=== PATIENT | female | born 1935 | race Caucasian/White ===

== ENCOUNTER 2020-05-18 16:17 | Inpatient (IN) | payer MEDICARE, OTHER ==
[~2020-05-18] VITALS: Ht 154.9 cm; Wt 54.0 kg
[~2020-05-18 16:17] MED LIST: ASPIRIN EC81 M1 PO; B COMPLEX-VITA1 EACH PO; CALCIUM 1,0001 EACH PO; COZAAR 50 MG TA50 MG PO; FISH OIL 1,0001 EAC5 PO; HYDROCODONE-AP1 EAC6 PO; LEVAQUIN 750 M750 MG PO; ONE-A-DAY WOMENS PO; PERCOCET 5-3251 EACH PO; SIMVASTATIN10 MG PO; SLOW FE 160MG160 MG PO; VENTOLIN HFA 1818 GM INH; VITAMIN D10000 UNIT PO
[2020-05-18] MEDS ORDERED: IRON18 M1 PO (16:20)
[2020-05-18] MEDS ORDERED: B12 ACTIVE1000 MCG PO (16:20)
[2020-05-18] MEDS ORDERED: CENTRUM ADULT120 MCG PO (16:20)
[2020-05-18] MEDS ORDERED: DIGOX125 MCG PO (16:21)
[2020-05-18] MEDS ORDERED: ACID CONTROLLER20 MG PO (16:21)
[2020-05-18] MEDS ORDERED: CARVEDILOL6.25 M1 PO (16:21)
[2020-05-18] MEDS ORDERED: ELIQUIS2.5 MG PO (16:21)
[2020-05-18] MEDS ORDERED: VITAMIN D350 MCG PO (16:22)
[2020-05-18] MEDS ORDERED: VENTOLIN HFA 1818 GM INH (16:22)
[2020-05-18] MEDS ORDERED: SIMVASTATIN40 MG PO (16:22)
[2020-05-18] MEDS ORDERED: DIPHENHIST50 MG PO (16:22)
[2020-05-18 16:28] VITALS: BP 184/110
[2020-05-18 16:48] LABS: ABSOLUTE BASOPHILS 0.1 thou/uL (0.0-0.2); ABSOLUTE EOSINOPHILS 0.6 thou/uL (0.0-0.7); ABSOLUTE LYMPHOCYTES 1.9 thou/uL (0.8-5.3); ABSOLUTE MONOCYTES 0.6 thou/uL (0.0-1.2); ABSOLUTE NEUTROPHILS 5.2 thou/uL (1.6-8.1); BASOPHILS 0.8 %; EOSINOPHILS 6.9 %; HEMATOCRIT 39.7 % (37.0-47.0); HEMOGLOBIN 13.5 gm/dL (12.0-15.0); LYMPHOCYTES 22.5 %; MCH 30.7 pg (26.0-34.0); MCHC 34.1 g/dL (28.0-37.0); MCV 89.8 fL (80.0-100.0); MONOCYTES 6.8 %; MPV 10.2 fl. (7.2-11.1); NUCLEATED RBCS 0 /100WBC; PLATELET COUNT* 218 thou/uL (150-400); RBC 4.42 mil/uL (4.20-5.00); RDW-CV 14.6 % (10.5-14.5); WBC 8.3 thou/uL (4.0-11.0)
[2020-05-18 16:55] LABS: CALCIUM 9.2 mg/dL (8.5-10.1); CREATININE 1.1 mg/dL (0.6-1.3); POTASSIUM 3.9 mmol/L (3.5-5.1)
[2020-05-18 16:59] LABS: APTT 24.8 Seconds (25.0-31.3); INR 1.1; PROTIME 11.8 Seconds (9.20-11.50)
[2020-05-18 17:00] LABS: ALBUMIN 3.7 g/dL (3.4-5.0); TOTAL BILIRUBIN 0.5 mg/dL (<0.1-1.0); TOTAL PROTEIN 7.7 g/dL (6.4-8.2)
[2020-05-18 21:57] LABS: URINE BILIRUBIN NEGATIVE (Negative); URINE BLOOD 1+ (Negative); URINE CLARITY CLEAR; URINE COLOR YELLOW; URINE GLUCOSE-RANDOM NEGATIVE (Negative); URINE KETONES TRACE (Negative); URINE LEUKOCYTES-REFLEX 1+ (Negative); URINE NITRITE-REFLEX NEGATIVE (Negative); URINE PROTEIN 1+ (Negative); URINE SPECIFIC GRAVITY 1.015 (1.005-1.030); URINE UROBILINOGEN 0.2 E.U./dl (0.2-1.0)
[2020-05-18 22:00] VITALS: BP 160/68
[2020-05-18 22:42] LABS: SQUAMOUS 0-3 Few /LPF (0-3)
[2020-05-18 22:43] LABS: CASTS None Seen /LPF (None Seen); URINE WBC-REFLEX >25 Many /HPF (0-5)
[2020-05-18 22:44] LABS: CRYSTALS None Seen /LPF (None Seen); URINE RBC 3-10 Few /HPF (0-2)
[2020-05-19 02:30] VITALS: BP 156/68
[2020-05-19] MEDS ORDERED: SYMBICORT160 MCG/4. INH (04:06)
--- NOTE | 2020-05-19 05:54 | NUR ---
ASSUMED CARE OF PT AT 0225. PT A&O, VSS ON ROOM AIR, PT NPO SINCE [place], PAIN MED REQUESTED AND GIVEN ORDERED, PT REPOSITIONED Q2H. HOURLY ROUNDINGS COMPLETE, WILL CONTINUE TO MONITOR.
[2020-05-19 08:09] VITALS: BP 175/62
--- NOTE | 2020-05-19 09:40 | EKG ---
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: : [id number] Requested By: Mark Schulte Order Number: [id number] MD: Hiro Quintanilla Measurements Intervals [place] Rate: 82 P: [place]: QRS: -53 QRSD: 105 T: 72 QT: 413 QTc: 483 Interpretive Statements Atrial fibrillation Left anterior fascicular block Probable anteroseptal infarct, old Compared to ECG 09/13/2015 14:46:42 Myocardial infarct finding now present Sinus rhythm no longer present Electronically Signed On 05-19-2020 9:40:01 CUT OUT OPERATOR by Hiro Quintanilla [email or web address] <ELECTRONICALLY SIGNED> By: Hiro Quintanilla MD, [facility] 05/19/20 0940 1643 1643 Hiro Quintanilla MD, [facility] /EPI
--- NOTE | 2020-05-19 14:17 | NUR ---
CM SPOKE TO THE PT TO DISCUSS CM ASSESSMENT. PT A&O. PT NORMALLY INDEPENDENT WITH ADL'S, ACTIVE AND ABLE TO DRIVE LOCALLY. PT INFORMS THAT SHE IS HERE VISITING HER DTR AND FAMILY, BUT RESIDES AT HOME ALONE IN [place]. PT OWNS A CANE AND A WALKER, BUT RARELY USED THEM. PT HAS HX OF HH AND OUTPATIENT PHYSICAL THERAPY. PT HAS 0 HX OF SNF. CM WILL REMAIN AVAILABLE TO ASSIST AND FOLLOW NEEDED.
[2020-05-19 16:45] VITALS: BP 179/75
[2020-05-19 20:00] VITALS: BP 165/75
--- NOTE | 2020-05-20 05:03 | NUR ---
ASSUMED PT'S CARE BEGINNING OF THIS PM SHIFT. ALERT AND ORIENTED. PT TOOK MEDS PER EMAR. RW IV SL. PRN FENTANYL GIVEN THIS SHIFT. PT SLEEPING WELL SO FAR. REFUSED ALL TURNS THIS SHIFT. VOIDED VIA BEDPAN. FALL PRCAUTION IN PLACE. CALL LIGHT WITHIN REACH. HOURLY ROUNDINGS MADE. WILL CONTINUE TO MONITOR.
[2020-05-20 08:00] VITALS: BP 161/68
--- NOTE | 2020-05-20 16:09 | NUR ---
ASSUMED CARE OF PATIENT THIS AM AT 0730. PATIENT IS ALERT AND ORIENTED X 4 THIS AM. SHE C/O SEVERE LEFT HIP PAIN. PATIENT WAS MEDICATED FOR PAIN AND SLEPT POST MEDICATION. PATIENT PLACED ON THE BEDPAN TO VOID. SHE HAS HAD DIFFICULTY TOLERATING ANY MOVEMENT. HER APPETITE AND FLUID INTAKE HAS BEEN LOW. DR LICEA NOTIFIED. IV FLUIDS STARTED PER ORDER. PATIENT HAS BECOME MORE CONFUSED THIS AFTERNOON. HER DAUGHTER IS IN AT THE BEDSIDE. PAIN MEDICATION ORDERS ARE TO BE CHANGED BY DR LICEA. PATIENT HAS BEEN REFUSING TO TURN. WILL CONTINUE TO MONITOR FLUID STATUS AND COMFORT.
[2020-05-20 16:30] VITALS: BP 151/71
[2020-05-20 18:45] LABS: ABSOLUTE BASOPHILS 0.1 thou/uL (0.0-0.2); ABSOLUTE EOSINOPHILS 0.2 thou/uL (0.0-0.7); ABSOLUTE LYMPHOCYTES 1.8 thou/uL (0.8-5.3); ABSOLUTE MONOCYTES 1.3 thou/uL (0.0-1.2); ABSOLUTE NEUTROPHILS 8.8 thou/uL (1.6-8.1); BASOPHILS 0.6 %; EOSINOPHILS 1.6 %; HEMATOCRIT 36.8 % (37.0-47.0); HEMOGLOBIN 12.3 gm/dL (12.0-15.0); LYMPHOCYTES 14.8 %; MCH 30.1 pg (26.0-34.0); MCHC 33.5 g/dL (28.0-37.0); MCV 89.7 fL (80.0-100.0); MONOCYTES 10.7 %; NUCLEATED RBCS 0 /100WBC; PLATELET COUNT* 177 thou/uL (150-400); POLYS 72.3 %; RDW-CV 14.8 % (10.5-14.5); WBC 12.1 thou/uL (4.0-11.0)
[2020-05-20 19:02] LABS: CALCIUM 8.6 mg/dL (8.5-10.1); POTASSIUM 3.7 mmol/L (3.5-5.1); TOTAL BILIRUBIN 1.3 mg/dL (<0.1-1.0); TOTAL PROTEIN 7.1 g/dL (6.4-8.2)
[2020-05-20 20:50] VITALS: BP 156/63
[2020-05-21 00:47] LABS: URINE BILIRUBIN NEGATIVE (Negative); URINE BLOOD 1+ (Negative); URINE CLARITY CLEAR; URINE COLOR YELLOW; URINE GLUCOSE-RANDOM NEGATIVE (Negative); URINE KETONES NEGATIVE (Negative); URINE LEUKOCYTES 2+ (Negative); URINE NITRITE NEGATIVE (Negative); URINE PROTEIN 1+ (Negative); URINE SPECIFIC GRAVITY 1.025 (1.005-1.030); URINE UROBILINOGEN 0.2 E.U./dl (0.2-1.0)
[2020-05-21 01:30] LABS: CASTS None Seen /LPF (None Seen); SQUAMOUS 0-3 Few /LPF (0-3)
[2020-05-21 01:31] LABS: CRYSTALS None Seen /LPF (None Seen); URINE RBC 3-10 Few /HPF (0-2); URINE WBC >25 Many /HPF (0-5)
--- NOTE | 2020-05-21 06:04 | NUR ---
PATIENT VERY DROWSY AND UNABLE TO ANSWER ORIENTATION QUESTIONS AT FIRST ROUNDS. CONTINUED IMPROVEMENT THE FURTHER REMOVED FROM LAST DOSE OF FENTANYL. DID MEDICATE PATIENT FOR PAIN X 2 WITH ONE TABLET OF HYDROCODONE WHICH WAS HELPFUL ENOUGH FOR STAFF TO TURN HER AND CHANGE BEDPAD/SKIN CHECK AND USE THE BEDPAN DURING THE SHIFT. ONLY 2 VOIDS TONIGHT. FIRST AT 0010 OF 100 ML WHICH WAS SENT TO LAB. SECOND VOID 0445 OF 400 ML. VITAL SIGNS STABLE. MEDS/IVF'S PER ORDER. FALL PRECAUTIONS IN PLACE. CONTINUE TO MONITOR.
[2020-05-21] MEDS ORDERED: HYDROCODON-ACE1 EAC7 PO (09:28)
--- NOTE | 2020-05-21 13:14 | NUR ---
Therapies recommending that Pt go to ARU at dc, ARU consult placed. Awaiting decision to accept. DC orders written.
[2020-05-21 16:37] VITALS: BP 131/58
--- NOTE | 2020-05-21 17:44 | NUR ---
PT ALERT AND ORIENTED IN BED. DAUGHTER AT BEDSIDE ALL DAY. PAIN MEDS GIVEN REQUESTED. PT COMPLAINS OF LEFT HIP PAIN. PT CALLS OUT APPROPRIATELY. PT USES BED PAIN. PT HAS NOT GOTTEN OUT OF BED TODAY. PT/OT WORKED WITH PT AND FAMILY TODAY. PT EATING AT THIS TIME. PT ALSO GIVEN CHOCOLATE ENSURE TO SUPPLEMENT NEEDED PER REQUEST. IV FLUIDS REMAIN INFUSING. FALL RISK PRECAUTIONS IN PLACE. WILL CONTINUE TO MONITOR.
--- NOTE | 2020-05-21 18:18 | NUR ---
THIS NURSE AGREES WITH MORNING ASSESSMENT BY JOSE SANTAMARIA
[2020-05-21 20:00] VITALS: BP 145/51
[2020-05-22 04:26] LABS: ABSOLUTE BASOPHILS 0.1 thou/uL (0.0-0.2); ABSOLUTE EOSINOPHILS 0.5 thou/uL (0.0-0.7); ABSOLUTE LYMPHOCYTES 1.6 thou/uL (0.8-5.3); ABSOLUTE MONOCYTES 0.8 thou/uL (0.0-1.2); ABSOLUTE NEUTROPHILS 5.8 thou/uL (1.6-8.1); BASOPHILS 0.7 %; EOSINOPHILS 5.8 %; HEMATOCRIT 33.2 % (37.0-47.0); HEMOGLOBIN 11.2 gm/dL (12.0-15.0); LYMPHOCYTES 17.9 %; MCH 30.4 pg (26.0-34.0); MCHC 33.8 g/dL (28.0-37.0); NUCLEATED RBCS 0 /100WBC; PLATELET COUNT* 150 thou/uL (150-400); POLYS 66.6 %; RBC 3.69 mil/uL (4.20-5.00); WBC 8.7 thou/uL (4.0-11.0)
[2020-05-22 04:38] LABS: CALCIUM 8.8 mg/dL (8.5-10.1); POTASSIUM 3.8 mmol/L (3.5-5.1)
--- NOTE | 2020-05-22 05:17 | NUR ---
ASSUMED CARE AT 1930. PATIENT RESTING IN BED. REFUSES TURNS. VERY VERY RELUCTANT TO TURN TO USE BEDPAN. HAS BEEN ABLE TO BRIDGE UP ENOUGH TO SCOOT BEDPAN IN FROM BETWEEN LEGS RATHER THAN HER TURN. PERICARE GIVEN. IVF INFUSING TO RT FA. MEDICATED FOR PAIN, WITH RELIEF. SEE MAR. HOURLY ROUNDS CONTINUE. BED ALARM ON. CALL LITE IN REACH.
[2020-05-22 08:25] VITALS: BP 132/64
[2020-05-22 15:52] VITALS: BP 159/63
[2020-05-22 21:00] VITALS: BP 159/68
--- NOTE | 2020-05-22 21:05 | NUR ---
RESTING QUIETLY IN BED. IV FLUIDS INFUSING. CALL LIGHT WITHIN REACH.
--- NOTE | 2020-05-23 04:51 | NUR ---
RESTED QUIETLY. REFUSES TO REPOSITION TO THE SIDE. USES FRACTURE BEDPAN TO VOID. HOURLY ROUNDING IN PROGRESS.
[2020-05-23 11:17] VITALS: BP 174/70
--- NOTE | 2020-05-23 15:03 | NUR ---
SPOKE WITH PT.AND DAUGHTER IN ROOM ABOUT HELP AT HOME AFTER REHAB STAY IF NEEDED. DAUGHTER SAID SHE AND ARE WORKING FROM HOME FOR AT LEAST 2 MONTHS. THEY WILL BE ABLE TO HELP HER WHEN SHE IS DISCHARGED FROM REHAB. PT.LIVES IN [place]. DAUGHTER STATED PT.MAY NEED TO MOVE HERE. NOTIFIED SCIENTOLOGIST/REHAB OF [facility]OVE. SHE SAID PT.CAN COME TO REHAB UNIT PENDING NEG.COVID TEST. NOTIFIED FLORENCIO FOX ABOUT NEEDED COVID TEST.
[2020-05-23 16:00] VITALS: BP 152/67
--- NOTE | 2020-05-23 18:18 | NUR ---
ASSESSMENT COMPLETED DOCUMENTED THIS MORNING. DAUGHTER AT THE BEDSIDE ALL DAY AND HAS BEEN VERY SUPPORTIVE. THERAPY IN FOR EVALS AND TREATMENT PATIENT TO BE TRANSFERRED TO REHAB THIS AFTERNOON. VSS, PAIN IS WELL MANAGED WITH CURRENT REGIMEN. C/O CONSTIPATION, PRUNE JUICE X2 AND 1 DOSE OF MIRALAX GIVEN TODAY. 174 PATIENT TRANSFERRED TO ROOM 318 ON REHAB
== END 2020-05-23 19:32 | DRG 560 ==
LOC: M.ERS 16:17 → M.TBA-ER 18:20 → M.3W 18:20
PROVIDERS: Emergency Medicine Emergency Medical Services; Internal Medicine; ADMIT Internal Medicine; ATTEND Internal Medicine
DX: M97.02XA Periprosthetic fracture around internal prosthetic left hip joint, initial encounter (principal); D68.59 Other primary thrombophilia; Z20.822 Contact with and (suspected) exposure to COVID-19; S41.112A Laceration without foreign body of left upper arm, initial encounter; S41.111A Laceration without foreign body of right upper arm, initial encounter; W01.0XXA Fall on same level from slipping, tripping and stumbling without subsequent striking against object, initial encounter; E78.00 Pure hypercholesterolemia, unspecified; E78.5 Hyperlipidemia, unspecified; I10 Essential (primary) hypertension; I48.91 Unspecified atrial fibrillation; Z96.642 Presence of left artificial hip joint; Y93.89 Activity, other specified; Y92.89 Other specified places as the place of occurrence of the external cause; Y99.8 Other external cause status; Z79.01 Long term (current) use of anticoagulants; Z79.899 Other long term (current) drug therapy; Z88.2 Allergy status to sulfonamides; Z98.41 Cataract extraction status, right eye; Z98.42 Cataract extraction status, left eye

== ENCOUNTER 2020-05-23 16:19 | Inpatient (IN) | payer MEDICARE, OTHER ==
[~2020-05-23] VITALS: Ht 154.9 cm; Wt 75.7 kg
[~2020-05-23 16:19] MED LIST changes: +ACID CONTROLLER20 MG PO; +B12 ACTIVE1000 MCG PO; +CARVEDILOL6.25 M1 PO; +CENTRUM ADULT120 MCG PO; +DIGOX125 MCG PO; +DIPHENHIST50 MG PO; +ELIQUIS2.5 MG PO; +HYDROCODON-ACE1 EAC7 PO; +IRON18 M1 PO; +SIMVASTATIN40 MG PO; +SYMBICORT160 MCG/4. INH; +VITAMIN D350 MCG PO
[2020-05-23 19:30] VITALS: BP 146/67
--- NOTE | 2020-05-24 00:46 | NUR ---
ASSUMED CARE AT 1930. PATIENT ADMITTED TO ROOM 318 FOR FX LT HIP. IN RECLINER AT BEGINNING OF SHIFT. USED BSC WITH MAX ASSIST OF TWO, TTWB TO LLE. NEEDED HELP WITH HYGIENE. MAX ASSIST FROM BSC > BED. ABLE TO BRIDGE UP VERY WELL IN BED. HAS BEEN USING BEDPAN FOR VOIDING. HAS VOIDED FOUR TIMES THUS FAR, VERY LARGE AMOUNTS EACH TIME. SKIN CARE DONE. MOISTURE BARRIER APPLIED. TAKES PILLS WHOLE WITH WATER. ASSESSMENT DONE. NO C/O PAIN WHEN LYING STILL. SKIN TEAR TO LT ELBOW, DRESSING CHANGED, PICTURE TAKEN. HOURLY ROUNDS CONTINUE. BED ALARM ON. CALL LITE IN REACH. FALL PRECAUTION
[2020-05-24 04:44] LABS: HEMATOCRIT 32.9 % (37.0-47.0); MCH 30.1 pg (26.0-34.0); MCHC 33.5 g/dL (28.0-37.0); MCV 89.9 fL (80.0-100.0); MPV 9.5 fl. (7.2-11.1); RBC 3.66 mil/uL (4.20-5.00); WBC 8.8 thou/uL (4.0-11.0)
[2020-05-24 05:13] LABS: CALCIUM 9.1 mg/dL (8.5-10.1); CREATININE 0.8 mg/dL (0.6-1.3); POTASSIUM 3.9 mmol/L (3.5-5.1)
--- NOTE | 2020-05-24 05:49 | NUR ---
SLEPT BETWEEN VOIDS. HAS VOIDED 7 TIMES THIS SHIFT LARGE AMOUNTS EACH TIME. VOIDS PER BEDPAN. CONTINUES TO BRIDGE UP WELL, SKIN CARE DONE, MOISTURE BARRIER APPLIED. DSSG TO LT ELBOW C/D/I. MEDICATED FOR PAIN WITH RELIEF. SEE JUL. HOURLY ROUNDS CONTINUE. BED ALARM ON. CALL LITE IN REACH. FALL PRECAUTIONS.
[2020-05-24 08:14] VITALS: BP 169/74
--- NOTE | 2020-05-24 10:06 | NUR ---
Nutrition: Pt admitted to rehab s/p fall/hip FX. Wt: 122#. Regular diet order. No intake records. Pt busy with OT at time of visit. H/o OA, HLD, afib. Will follow for po intake, wts. Follow weekly. Mild risk at this time.
--- NOTE | 2020-05-24 14:36 | NUR ---
INITIAL ASSESSMENT: PATIENT ADMITTED TO THE [facility] ON 05/23/20 WITH A DIAGNOSIS OF LEFT HIP FX. PATIENT A&0. NORMALLY INDEPENDENT WITH ADL' AND ACTIVE. PT RESIDES AT HOME IN [place] ALONE. PT HERE VISITING FAMILY. PT PLANS TO RETURN TO DTR'S HOUSE AT D/C AND THEY WILL BE THERE TO ASSIST HER WITH CARES THEY ARE CURRENTLY WORKING FROM HOME. PT OWNS A WALKER, CANE, AND COMMODE BUT DID NOT USE ANY DME PRIOR TO ADMIT. PT HAS NO HX OF SNF. PT HAS PAST HH AND OUTPATIENT THERAPY HX. CM ORIENTED PT AND HER DTR ABOUT REHAB UNIT AND PROCESSES, RESIDENTS RIGHTS INFO, TEAM CONFRENCE, AND TO THE ROLE OF CM. CM WILL REMAIN AVAILABLE TO ASSIST AND FOLLOW NEEDED.
--- NOTE | 2020-05-24 18:10 | NUR ---
ASSESSMENT COMPLETED DOCUMENTED THIS MORNING. PATIENT HAS BEEN UP AND PARTICIPATING WITH THERAPIES, AND TOLERATING WELL. HYDROCODONE X1 DURING SHIFT WITH RELIEF NOTED. DAUGHTER AT THE BEDSIDE ALL DAY AND PROVIDES SUPPORT.
[2020-05-24 20:00] VITALS: BP 148/64
--- NOTE | 2020-05-25 06:40 | NUR ---
ASSUMED PT CARE AT 1930. ASSESSMENT COMPLETED CHARTED. ABLE TO MAKE NEED KNOWN. C/O LEFT LEG PAIN AND GAVE PRN PAIN MEDICATION PER EMAR. RESTING IN BED ALL NIGHT, USED BEDPAN TO URINATE. WILL CONTINUE TO MONITOR.
[2020-05-25 08:00] VITALS: BP 158/72
--- NOTE | 2020-05-25 17:57 | NUR ---
AM ASSESSMENT AND VITAL SIGNS COMPLETED DOCUMENTED. PT WORKED WITH OT, PT AND ST TODAY. NEW ORDERS REC'D FOR PRN LIDOCAINE PATCH TO THE LEFT HIP AND VOLTAREN GEL PRN TO THE NECK. PT'S DAUGHTER WAS HERE MOST OF THE DAY AND SHE IS VERY HELPFUL, PT WILL BE GOING HOME WITH HER AT DISCHARGE. FALL PRECAUTIONS AND HOURLY ROUNDING IN PLACE.
[2020-05-25 20:00] VITALS: BP 100/76
[2020-05-26 08:28] VITALS: BP 156/78
[2020-05-26 19:35] VITALS: BP 142/64
--- NOTE | 2020-05-26 19:35 | NUR ---
RESTING QUIETLY IN BED AND WATCHING TV. DENIES DISCOMFORT. CALL LIGHT WITHIN REACH.
--- NOTE | 2020-05-27 04:50 | NUR ---
RESTED QUIETLY AFTER TAKING AMBIEN. USED BEDPAN TO VOID. HOURLY ROUNDING IN PROGRESS.
[2020-05-27 07:30] VITALS: BP 143/57
--- NOTE | 2020-05-27 18:39 | NUR ---
ASSESSMENT COMPLETED DOCUMENTED THIS MORNING. PATIENT UP AND PROPELLED SELF AROUND ENTIRE 3RD FLOOR X2 TODAY. HYDROCODONE X2, AND DICLOFENAC GEL PRN WITH GOOD PAIN CONTROL STATED. UP TO BSC AND HAS REMAINED CONT OF URINE. NO BOWEL MOVEMENT NOTED.
[2020-05-27 19:10] VITALS: BP 126/64
--- NOTE | 2020-05-27 19:10 | NUR ---
RESTING QUIETLY IN BED WATCHING TV. CALL LIGHT WITHIN REACH. STATES WOULD LIKE PAIN MEDICINE FOR LEFT HIP PAIN RATED "5".
[2020-05-28 04:09] LABS: HEMATOCRIT 32.4 % (37.0-47.0); HEMOGLOBIN 11.1 gm/dL (12.0-15.0); MCH 30.5 pg (26.0-34.0); MCHC 34.1 g/dL (28.0-37.0); MCV 89.3 fL (80.0-100.0); MPV 8.8 fl. (7.2-11.1); RBC 3.63 mil/uL (4.20-5.00); WBC 9.8 thou/uL (4.0-11.0)
[2020-05-28 04:46] LABS: ALBUMIN 2.7 g/dL (3.4-5.0); CALCIUM 8.9 mg/dL (8.5-10.1); MAGNESIUM 2.3 mg/dL (1.8-2.4); POTASSIUM 4.5 mmol/L (3.5-5.1); TOTAL BILIRUBIN 0.6 mg/dL (<0.1-1.0); TOTAL PROTEIN 6.7 g/dL (6.4-8.2)
--- NOTE | 2020-05-28 06:38 | NUR ---
RELIEF WITH PAIN MEDICINE. USED BEDPAN DURING THE NIGHT TO VOID. HOURLY ROUNDING IN PROGRESS.
[2020-05-28 08:00] VITALS: BP 136/58
--- NOTE | 2020-05-28 14:31 | NUR ---
CM SPOKE TO THE PT AND HER DTR TO DISCUSS AND QUESTIONS OR CONCERNS THAT THEY MAY HAVE FOR THIS WEEKS TEAM [facility]FRENCE MEETING. PT HAS NO QUESTIONS OR CONCERNS AT THIS TIME. PT'S DTR INFORMS THAT HER ONLY QUESTION IS IF THE PT WILL QUALIFY FOR A WHEELCHAIR. CM TO DISCUSS DME WITH PT/OT. CM AND PHYSICIAN TO F/U WITH PT AND HER DTR AFTER THURSDAY'S TEAM [facility] MEETING. CM WILL REMAIN AVAILABLE TO ASSIST AND FOLLOW NEEDED.
--- NOTE | 2020-05-28 16:15 | NUR ---
ALERT AND ORIENTED X4. UP WITH 1 ASSIST, GAIT BELT AND WALKER. REMAINS TOE TOUCH WEIGHTBEARING TO LEFT LOWER EXTREMITY. SKIN TEAR ON LEFT ELBOW HEALING AND NEW DRESSING APPLIED. MOM GIVEN FOR CONSIIPATION WITH GOOD RESULTS. TAKES PILLS WHOLE WITHOUT DIFFICULTY. GIVEN PO PAIN MEDICATION TO HELP WITH LEFT HIP PAIN. PAIN PATCH ALSO APPLIED TO LEFT HIP TO HELP WITH PAIN. GEL APPLIED TO RIGHT SHOULDER FOR PAIN. CONTINENT OF BOWEL AND BLADDER. USES CALL LIGHT FOR ASSIST. FALL PRECAUTIONS IN PLACE. BED ALARM AND CHAIR ALARM USED.
[2020-05-28 19:00] VITALS: BP 139/66
--- NOTE | 2020-05-29 04:57 | NUR ---
ASSUMED PT CARE AT 1930. PT ALERT AND ORIENTED X4, POLITE AND COOPERATIVE WITH CARES. PRN PAIN MEDICATION GIVEN WITH HS MEDS FOR LEFT HIP PAIN. REMAINS TTWB TO LLE. DRESSING TO LEFT ELBOW SKIN TEAR C/D/I. TAKES PILLS WHOLE WITH WATER WITHOUT DIFFICUTLY. CONTINENT OF BOWEL AND BLADDER. PT SLEPT WELL OVERNIGHT. USES CALL LIGHT APPROPRIATELY. CALL LIGHT IN REACH, BED ALARM ON FOR SAFETY. HOURLY ROUNDING IN PROGRESS, WILL CONTINUE TO MONITOR.
[2020-05-29 08:00] VITALS: BP 146/59
--- NOTE | 2020-05-29 11:50 | NUR ---
AT APROXIMATELY 0917 WAS CALLED TO ROOM BY . PATIENT FOUND LEANING OVER IN BED. RAT TEAM CALLED. V/S DONE AND O2 APPLIED AT 5L/NC DUE TO SATS IN 8O'S. NURSING RUG TOUCH UP PAINTER HERE AND LABS ORDERED, IVF STARTED AND PATIENT PLACED IN [place]. NURSING RUG TOUCH UP PAINTER NOTIFIED BY 0938 PATIENT DOING BETTER AND BLOOD PRESSURE AND PULSE DOING BETTER. WILL CONTINUE TO MONITOR.
--- NOTE | 2020-05-29 16:52 | NUR ---
PATIENT COMPLETED THERAPIES ORDERED. UP IN WHEELCHAIR THROUGHOUT THE SHIFT. PATIENT C/O HEADACHE THIS EVENING, PRN TYLENOL GIVEN ORDERED. PRN HYDROCODONE GIVEN X 2 THIS SHIFT FOR LEG PAIN. PATIENT DAUGHTER HERE THIS EVENING AND C/O DISCOLORATION TO PATIENTS LEGS. PATIENT WAS PREVIOUSLY REFUSING TO ELEVATE LEGS. PEDAL PULSES 2+, SLIGHT EDEMA NOTED TO LEFT FOOT. PATIENT INSTRUCTED TO KEEP LEGS ELEVATED WHEN IN BED AND WHEN UP TO CHAIR, LEGS ELEVATED AT THIS TIME. UP TO BS WITH ASSISTANCE OF ONE AND USE OF GAIT BELT AND WALKER.
[2020-05-29 20:00] VITALS: BP 155/55
[2020-05-30 04:59] LABS: HEMATOCRIT 32.2 % (37.0-47.0); HEMOGLOBIN 10.7 gm/dL (12.0-15.0); MCH 29.6 pg (26.0-34.0); MCHC 33.2 g/dL (28.0-37.0); RBC 3.62 mil/uL (4.20-5.00); RDW-CV 15.1 % (10.5-14.5); WBC 8.4 thou/uL (4.0-11.0)
[2020-05-30 05:19] LABS: CALCIUM 9.2 mg/dL (8.5-10.1); POTASSIUM 4.4 mmol/L (3.5-5.1)
[2020-05-30 08:00] VITALS: BP 131/97
--- NOTE | 2020-05-30 14:26 | NUR ---
AM ASSESSMENT AND VITAL SIGNS COMPLETED DOCUMENTED. PT HAS WORKED WITH PT, OT AND ST AND IS PROGRESSING WELL. I CALLED DR NGUYEN'S OFFICE TO CHECK ON ADVANCING WEIGHT BEARING STATUS, AWAITING RETURN CALL. PT'S DAUGHTER IS HERE TO VISIT. FALL PRECAUTIONS AND HOURLY ROUNDING CONTINUE.
[2020-05-30 19:25] VITALS: BP 127/64
--- NOTE | 2020-05-30 19:25 | NUR ---
IN WHEELCHAIR PROPELLING SELF AROUND IN HER ROOM. DENIES DISCOMFORT. TRANSFERRED TO THE BEDSIDE COMMODE WITH MODERATE ASSIST OF ONE, HERBER CASSIDY. TOUCH TOUCH WEIGHT BEARING TO LEFT LOWER EXTREMITY DUE TO LEFT HIP FRACTURE. TRANSFERRED FROM BEDSIDE COMMODE TO BED WITH KHANH WALKER. ASSISTED WITH LIFTING LEFT LEG INTO BED. CALL LIGHT WITHIN REACH.
--- NOTE | 2020-05-31 05:16 | NUR ---
VOIDED PER BEDPAN X 4 DURING THE NIGHT. PAIN MEDICATION GIVEN THIS MORNING FOR COMPLAINT OF LEFT HIP PAIN RATED "5". WILL CONTINUE TO MONITOR. HOURLY ROUNDING IN PROGRESS.
[2020-05-31 08:00] VITALS: BP 126/74
--- NOTE | 2020-05-31 15:23 | NUR ---
TEAM CONFRENCE MEETING HELD TODAY. CM AND PHYSICIAN SPOKE TO THE PT AND HER DTR TO DISCUSS MEETING AND PLAN TO RE-TEAM AND HAVE THE PT REMAIN ON THE UNIT FOR ANOTHER WEEK. PT AND DTR IN AGREEMENT WITH THE PLAN. PT PROGRESSING TOWARDS GOALS, BUT BARRIERS ARE WB STATUS, DECREASED BALANCE, AND LEFT GROIN PAIN. PT APPROVED FOR LIGHT WEIGHT WHEELCHAIR AND CM DELIVED WC TO PT'S ROOM. CM WILL REMAIN AVAILABLE TO ASSIST AND FOLLOW NEEDED.
[2020-05-31 19:20] VITALS: BP 139/55
--- NOTE | 2020-05-31 19:20 | NUR ---
RESTING QUIETLY IN BED AND WATCHING TV. STATES LEFT HIP PAIN AT A "1". CALL LIGHT WITHIN REACH.
--- NOTE | 2020-06-01 05:20 | NUR ---
USED BEDPAN TO VOID DURING THE NIGHT. RESTED QUIETLY IN BETWEEN VOIDS. HOURLY ROUNDING IN PROGRESS.
[2020-06-01 08:48] VITALS: BP 140/69
--- NOTE | 2020-06-01 16:22 | NUR ---
PT WORKED WITH THERAPIES. UP WITH WALKER AND MIN ASSIST TO BSC. LARGE BM TODAY. PRN PAIN MEDICATION GIVEN PER PT REQUESTS.
[2020-06-01 20:00] VITALS: BP 146/63
--- NOTE | 2020-06-02 06:43 | NUR ---
ASSUMED PT CARE AT 1930. ASSESSMENT COMPLETED CHARTED. ABLE TO MAKE NEEDS KNOWN. C/O PAIN AND GAVE PRN PAIN MEDICATIONS PER EMAR. RESTING IN BED MOST OF THE NIGHT. WILL CONTINUE TO MONITOR.
[2020-06-02 07:22] VITALS: BP 157/59
--- NOTE | 2020-06-02 16:20 | NUR ---
PT UP WITH STB ASSIST WITH WALKER AND GAIT BELT. DAUGHTER HERE TO VISIT. PRN PAIN MEDICATION GIVEN PER PT REQUESTS.
[2020-06-02 19:00] VITALS: BP 134/44
--- NOTE | 2020-06-03 05:37 | NUR ---
ASSUMED CARES AT 1920. ALERT AND ORIENTED. PLEASANT. NORCO GIVEN FOR LEFT HIP PAIN. PT REQUESTED USE OF BEDPAN OVERNIGHT. EDUCATED PT ON IMPORTANCE OF GETTING UP TO BSC. PT STATED THAT GETTING UP AND DOWN FROM BSC WOULD KEEP PT AWAKE AND UNABLE TO FALL BACK ASLEEP. PT SLEPT MOST OF THE NIGHT OTHERWISE. CALL LIGHT IN REACH AND BED ALARM ON.
[2020-06-03 07:41] VITALS: BP 147/65
--- NOTE | 2020-06-03 16:17 | NUR ---
PT UP WITH STB ASSIST WITH GAIT BELT AND WALKER. PRN PAIN MEIDCATION GIVEN PER PT REQUEST. DAUGHTER HERE TO VISIT. FALL PRECAUTIONS IN PLACE INCLUDING BED/CHAIR ALARM. CALL LIGHT IN REACH.
[2020-06-03 20:00] VITALS: BP 142/57
--- NOTE | 2020-06-04 04:48 | NUR ---
ASSUMED CARE AT 1920. ALERT AND ORIENTED. PLEASANT. C/O LEFT HIP PAIN. PAIN MEDS GIVEN NEEDED. MIN ASSIST WITH GAIT BELT AND WALKER. UP TO BSC TO VOID OVERNIGHT. TTWB LLE. SLEPT MOST OF THE NIGHT. CALL LIGHT IN REACH AND BED ALARM ON.
[2020-06-04 07:31] VITALS: BP 150/58
--- NOTE | 2020-06-04 14:13 | NUR ---
CM SPOKE TO THE PT AND HER SON TO DISCUSS ANY QUESTIONS OR CONCERN THAT THEY MAY HAVE FOR THIS WEEKS TEAM CONFRENCE MEETING. PT AND SON HAVE NO QUESTIONS OR CONCERNS AT THIS TIME. CM TO F/U WITH PT AND HER FAMILY TO PROVIDE UPDATE AFTER THIS WEEKS MEETING.
--- NOTE | 2020-06-04 14:14 | NUR ---
CM SPOKE TO THE PT AND HER DTR TO DISCUSS ANY QUESTIONS OR CONCERNS THAT THEY MAY HAVE FOR THIS WEEKS TEAM CONFRENCE MEETING. PT AND DTR INFORM THAT THEY ARE HOPEFUL THAT THE PT IS ABLE TO GO HOME THIS WEEK. CM TO F/U WITH PT AND HER DTR AFTER THIS WEEKS MEETING.
--- NOTE | 2020-06-04 16:00 | NUR ---
PT WORKED WITH THERAPIES. UP WITH STB, GAIT BELT, AND WALKER. SMALL ABRASION TO L BUTTOCK NOTED. PICTURE TAKEN. BARRIER CREAM APPLIED. PT WITH EPISODE OF N/V THIS AM. MAALOX GIVEN WITH RELIEF. DR CABALLERO NOTIFIED. PRN TYLENOL GIVEN PER PT REQUEST. FALL PRECAUTIONS IN PLACE INCLUDING BED/CHAIR ALARMS. CALL LIGHT IN REACH.
[2020-06-04 19:00] VITALS: BP 130/53
--- NOTE | 2020-06-04 19:40 | NUR ---
RESTING QUIETLY IN BED, WATCHING TV BUT STARTING TO DOZE OFF TO SLEEP. DENIES DISCOMFORT. CALL LIGHT WITHINR REACH.
--- NOTE | 2020-06-05 04:51 | NUR ---
UP TO BEDSIDE COMMODE X 2. FIRST TIME HAD MODERATE AMOUNT OF LOOSE STOOL. TRANSFERS SELF WITH GAITBELT, WALKER. DOES OWN ROSAMARIA CARE WITH SET UP. TOE TOUCH WEIGHT BEARING TO LEFT LOWER EXTREMITY DUE TO LEFT HIP FRACTURE. HOURLY ROUNDING IN PROGRESS.
[2020-06-05 07:30] VITALS: BP 147/60
--- NOTE | 2020-06-05 17:42 | NUR ---
PATIENT COMPLETED THERAPIES ORDERED. PRN HYDROCODONE GIVEN X 2 THIS SHIFT. PATIENT DAUGHTER HERE FOR FAMILY TRAINING.
[2020-06-05 19:00] VITALS: BP 120/43
--- NOTE | 2020-06-05 19:45 | NUR ---
RESTING QUIETLY IN BED. DENIES PAIN. CALL LIGHT WITHIN REACH.
[2020-06-06 03:57] LABS: HEMATOCRIT 31.8 % (37.0-47.0); HEMOGLOBIN 10.7 gm/dL (12.0-15.0); MCHC 33.6 g/dL (28.0-37.0); MCV 89.3 fL (80.0-100.0); MPV 9.1 fl. (7.2-11.1); RBC 3.56 mil/uL (4.20-5.00); RDW-CV 15.2 % (10.5-14.5); WBC 8.4 thou/uL (4.0-11.0)
[2020-06-06 04:08] LABS: CALCIUM 9.2 mg/dL (8.5-10.1); CREATININE 0.9 mg/dL (0.6-1.3); POTASSIUM 4.1 mmol/L (3.5-5.1)
--- NOTE | 2020-06-06 06:21 | NUR ---
UP X 3 DURING THE NIGHT TO THE BEDSIDE COMMODE. HAD A LOOSE BM THE FIRST TIME. HOURLY ROUNDING IN PROGRESS. RESTED QUIETLY IN BETWEEN VOIDS.
[2020-06-06 07:45] VITALS: BP 163/61
[2020-06-06 13:40] VITALS: BP 163/61
[2020-06-06] MEDS ORDERED: HYDROCODON-ACE1 EAC7 PO (13:56)
--- NOTE | 2020-06-06 15:03 | NUR ---
AM ASSESSMENT AND VITAL SIGNS COMPLETED DOCUMENTED. AFTER TEAM MEETING IT WAS AGREED PATIENT WOULD DISCHARGE HOME WITH HER DAUGHTER. PT AND DAUGHTER PROVIDED WITH DISCHARGE INSTRUCTIONS. PT AND BELONGINGS TRANSPORTED TO EXIT VIA WHEELCHAIR, DISCHARGED HOME IN STABLE CONDITION.
== END 2020-06-06 15:21 | disposition home or self-care (01) | DRG 560 ==
LOC: M.REH 16:19
PROVIDERS: Internal Medicine; ADMIT Physical Medicine & Rehabilitation; ATTEND Physical Medicine & Rehabilitation
DX: M97.02XA Periprosthetic fracture around internal prosthetic left hip joint, initial encounter (principal); D68.59 Other primary thrombophilia; I48.20 Chronic atrial fibrillation, unspecified; M19.90 Unspecified osteoarthritis, unspecified site; Z96.642 Presence of left artificial hip joint; E78.00 Pure hypercholesterolemia, unspecified; D72.829 Elevated white blood cell count, unspecified; I10 Essential (primary) hypertension; D64.9 Anemia, unspecified; K59.00 Constipation, unspecified; E78.2 Mixed hyperlipidemia; R53.81 Other malaise; Z98.49 Cataract extraction status, unspecified eye; Z88.2 Allergy status to sulfonamides; Z79.899 Other long term (current) drug therapy